=== PATIENT | male | born 2000 | race Caucasian/White ===

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

== ENCOUNTER 2023-05-23 03:23 | Emergency (ER) | payer SELFPAY ==
[~2023-05-23] VITALS: Ht 172.7 cm; Wt 66.2 kg
[~2023-05-23 03:23] MED LIST: DOXYCYCLINE MO100 M1 PO
[2023-05-23] MEDS ORDERED: IBUPROFEN200 MG PO (03:43)
[2023-05-23] MEDS ORDERED: THERAFLU MS SE1 EACH PO (03:43)
[2023-05-23] MEDS ORDERED: TAMIFLU75 MG PO (03:43)
[2023-05-23 03:49] VITALS: BP 158/84; PULSE 106; RESP 18; TEMP 100; O2SAT 100
== END 2023-05-23 03:49 | disposition home or self-care (01) ==
LOC: FSED 03:27
DX: R50.9 Fever, unspecified (principal); R05.9 Cough, unspecified; J11.1 Influenza due to unidentified influenza virus with other respiratory manifestations; R00.0 Tachycardia, unspecified; R53.81 Other malaise
CPT/HCPCS: 99282